=== PATIENT | male | born 1995 | race Caucasian/White ===

== ENCOUNTER 2017-05-06 19:23 | Emergency (ER) | payer OTHER ==
[~2017-05-06] VITALS: Ht 177.8 cm; Wt 96.0 kg
[2017-05-06 23:35] VITALS: BP 127/74
== END 2017-05-06 23:55 | disposition home or self-care (01) ==
LOC: ER 20:25
DX: L05.91 Pilonidal cyst without abscess (principal)
CPT/HCPCS: 10080; 99284; Z7610